=== PATIENT | male | born 1980 | race Caucasian/White ===

== ENCOUNTER 2022-09-30 10:33 | Day surgery (SDC) | payer BC ==
[2022-09-28 12:02] VITALS: BMI 26.1
[2022-09-30] MEDS ORDERED: SUGAMMADEX SODIUM 200 MG/2 ML VIAL ONE (11:49)
[2022-09-30] MEDS ORDERED: Acetaminophen 325 MG TAB PO PRN (11:53)
[2022-09-30] MEDS ORDERED: HYDROcodone/Acetaminophen 5/325 mg Tablet PO PRN (11:53)
[2022-09-30] MEDS ORDERED: PROPOFOL 20 ML ONE (11:54)
[2022-09-30] MEDS ORDERED: Dexamethasone 4 mg/ml Vial ONE (11:54)
[2022-09-30] MEDS ORDERED: Fentanyl 100 MCG/2 ML VIAL ONE ×2 (11:54→13:09)
[2022-09-30] MEDS ORDERED: Midazolam HCl 2 mg/2 ml Vial ONE (11:54)
[2022-09-30] MEDS ORDERED: Rocuronium Bromide 10 MG/ML (10ML VIAL) ONE (11:54)
[2022-09-30] MEDS ORDERED: Lidocaine 1% PF 5 ML VIAL ONE (11:54)
[2022-09-30] MEDS ORDERED: Ondansetron PF 4 MG/2 ML Vial ONE (11:54)
[2022-09-30] MEDS ORDERED: EPINEPHrine 1 MG/ML AMP ONE (11:55)
[2022-09-30] MEDS ORDERED: Bupivacaine PF 0.5% 30 ML VIAL ONE (11:56)
[2022-09-30] MEDS ORDERED: Lidocaine 4% PF 5 ML AMP ONE (12:03)
[2022-09-30] MEDS ORDERED: CEFAZOLIN 2 GM VIAL ONE (12:11)
[2022-09-30] MEDS ORDERED: HYDROcodone/Acetaminophen 5/325 mg Tablet ONE (14:34)
== END 2022-09-30 15:24 | disposition home or self-care (01) ==
LOC: CSHSDC 10:33
PROVIDERS: ATTEND Surgery
PROC: 0YQA4ZZ Repair Bilateral Inguinal Region, Percutaneous Endoscopic Approach (ICD-10-PCS; principal; 2022-09-30)
DX: K40.20 Bilateral inguinal hernia, without obstruction or gangrene, not specified as recurrent (principal); J45.990 Exercise induced bronchospasm
CPT/HCPCS: C1713; J0171; J1100; J2250; J2405; J2704; J3010; S0020